=== PATIENT | female | born 1955 | race Caucasian/White ===

== ENCOUNTER 2018-03-28 09:15 | Emergency (ER) | payer SELFPAY ==
[2018-03-28] MEDS: ACETAMINOPHEN 325 MG TAB PO (09:38)
[2018-03-28 09:56] LABS: ADD UMIC YES; UR ASCORBIC ACID 40 mg/dL (NEGATIVE); UR BILIRUBIN (Dip) NEGATIVE (NEGATIVE); UR BLOOD (Dip) NEGATIVE (NEGATIVE); UR CLARITY CLEAR (CLEAR); UR COLOR YELLOW (YELLOW); UR GLUCOSE (Dip) NEGATIVE (NEGATIVE); UR KETONES (Dip) NEGATIVE (NEGATIVE); UR LEUKOCYTE ESTERASE (Dip) NEGATIVE Leu/ul (NEGATIVE); UR MUCUS FEW /HPF (NONE SEEN); UR NITRITE (Dip) NEGATIVE (NEGATIVE); UR RBC 3 /HPF (0-5); UR SPECIFIC GRAVITY (Dip) 1.018 (1.003-1.030); UR TOTAL PROTEIN (Dip) 1+ mg/dl (NEGATIVE); UR UROBILINOGEN (Dip) NEGATIVE (NEGATIVE); UR WBC 2 /HPF (0-5)
== END 2018-03-28 11:47 | disposition home or self-care (01) ==
LOC: FTE 11:47
DX: S39.81XA Other specified injuries of abdomen, initial encounter (principal); S09.90XA Unspecified injury of head, initial encounter; R93.0 Abnormal findings on diagnostic imaging of skull and head, not elsewhere classified; V03.10XA Pedestrian on foot injured in collision with car, pick-up truck or van in traffic accident, initial encounter
CPT/HCPCS: 70450; 71045; 72100; 76705; 81001; 99284-25